=== PATIENT | male | born 1985 | race Caucasian/White ===

== ENCOUNTER 2018-02-03 21:27 | Emergency (ER) | payer SELFPAY ==
[~2018-02-03 21:27] MED LIST: IBUP-238 PO
[2018-02-03 22:05] VITALS: BP 141/70; PULSE 94; RESP 16; TEMP 98.9; O2SAT 98
--- NOTE | 2018-02-03 22:16 | PD ---
HPI Chief Complaint: Laceration/Skin Injury Time Seen by Provider: 22:15 Travel History International Travel<30 days: No Contact w/Intl Traveler<30days: No Traveled to known affect area: No History of Present Illness HPI 32-year-old male came to the emergency room with history right hand multiple finger injuries while he was at work. 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 Patient ended up having superficial laceration of his right index, middle finger and thumb. The bleeding has stopped. Patient apply triple antibiotic ointment to the wound and put some Band-Aid but his employer insisted that he should come to the emergency room to be checked out. Patient does not recall his last tetanus shot. Otherwise a healthy person. [facility] Past Medical History Narrative Medical List of his past medical, surgical, social and family history is reviewed from the nursing note. Anxiety: Yes Psychiatric: Yes (ptsd) Social History Alcohol Use: Yes (occ) Tobacco Use: Yes (1ppd) Substance Use: Yes (weed) Allergies-Medications (Allergen,Severity, Reaction): Coded Allergies: No Known Allergies (Unverified Adverse Reaction, Unknown, 02/03/18) Comments No known drug allergies. Reported Meds & Prescriptions Reported Meds & Active Scripts Active Motrin (Ibuprofen) 800 Mg Tab 800 Mg PO TID Narrative Medication List of his home medications reviewed from the nursing note Review of Systems Except as stated in HPI: all other systems reviewed are Neg Physical Exam Narrative GENERAL: Awake, alert, no obvious to SKIN: Focused skin assessment warm/dry. Right hand index, middle fingers and thumb has superficial laceration each 1 cm long with no active bleeding HEAD: Atraumatic. Normocephalic. EYES: Pupils equal and round. No scleral icterus. No injection or drainage. ENT: No nasal bleeding or discharge. Mucous membranes pink and moist. NECK: Trachea midline. No JVD. CARDIOVASCULAR: Regular rate and rhythm. No murmur appreciated. RESPIRATORY: No accessory muscle use. Clear to auscultation. Breath sounds equal bilaterally. GASTROINTESTINAL: Abdomen soft, non-tender, nondistended. Hepatic and splenic margins not palpable. MUSCULOSKELETAL: No obvious deformities. No clubbing. No cyanosis. No edema. NEUROLOGICAL: Awake and alert. No obvious cranial nerve deficits. Motor grossly within normal limits. Normal speech. PSYCHIATRIC: Appropriate mood and affect; insight and judgment normal. Data Data Last Documented VS Vital Signs Date Time Temp Pulse Resp B/P (MAP) Pulse Ox O2 Delivery O2 Flow Rate FiO2 02/03/18 22:05 98.9 94 16 141/70 (93) 98 Orders Orders Tetanus/Diphtheria Tox Adult (Tetanus/Di (02/03/18 22:30) Hand, Complete ([id number]) (02/03/18 ) Ed Discharge Order (02/03/18 22:50) MDM Medical Decision Making Medical Screen Exam Complete: Yes Emergency Medical Condition: Yes Medical Record Reviewed: Yes Differential Diagnosis Foreign body in the wound, superficial laceration Narrative Course 10:54 PM patient was given a tetanus dose. Chest x-ray was done to rule out any foreign body. X-ray has been read by the radiologist as no retained foreign body. I am comfortable discharging him home. Procedures EKG Prior to Arrival: No Diagnosis Primary Impression: Finger laceration Qualified Codes: S61.219A - Laceration without foreign body of unspecified finger without damage to nail, initial encounter Departure Forms: Tests/Procedures, Work Release Enter return to work date: Feb 05, 2018 Additional Instructions: Keep the wound clean and dry for next 24-48 hours. Wear gloves if you have to get your hands wet. Apply triple antibiotic ointment twice a day until the wound heals. Med/Other Pt SpecificInfo: No Change to Meds Disposition: 01 DISCHARGE HOME Condition: Stable Christina Bentley MD Feb 03, 2018 22:16
[2018-02-03] MEDS ORDERED: TETANUS/DIPHTHERIA TOXOID ADULT 0.5 ML VIAL IM ONE (22:30)
--- NOTE | 2018-02-03 22:36 | RADRPT ---
EXAM DATE/TIME: 02/03/2018 22:26 [facility] COMPARISON: No previous studies available for comparison. INDICATIONS : Pain from laceration laterally on second middle phalanx area and anterior middle phalanx area. MEDICAL HISTORY : None. SURGICAL HISTORY : None. ENCOUNTER: Initial ACUITY: 2 days PAIN SCORE: 2/10 LOCATION: Right hand. FINDINGS: Three views of the right hand demonstrate no fracture or dislocation. Mineralization is within normal limits and there is no significant arthropathy. No soft tissue abnormality or radiopaque foreign bod y is identified. CONCLUSION: No acute abnormality is identified. No radiopaque foreign body is present. Harjit Nova MD on February 03, 2018 at 22:33 Board Certified Radiologist. This report was verified electronically.
== END 2018-02-03 23:06 | disposition home or self-care (01) ==
LOC: NEPD 21:27
DX: S61.210A Laceration without foreign body of right index finger without damage to nail, initial encounter (principal); W25.XXXA Contact with sharp glass, initial encounter; Y93.G1 Activity, food preparation and clean up; Y92.511 Restaurant or cafe as the place of occurrence of the external cause; Y99.0 Civilian activity done for income or pay; Z72.0 Tobacco use; Z23 Encounter for immunization
CPT/HCPCS: 73130; 90471; 90714